=== PATIENT | female | born 1985 | race Two or more races ===

== ENCOUNTER 2020-09-07 22:36 | Emergency (ER) | payer SELFPAY ==
[~2020-09-07] VITALS: Ht 157.5 cm; Wt 85.5 kg
[2020-09-07 22:50] VITALS: BP 139/79; Ht 157.5 cm; Wt 85.5 kg
[2020-09-07 23:25] LABS: BILIRUBIN NEGATIVE (NEGATIVE); KETONE NEGATIVE (NEGATIVE); NITRITE NEGATIVE (NEGATIVE); UROBILINOGEN NORMAL mg/dL (< 2)
[2020-09-07 23:26] LABS: BACTERIA MODERATE HPF (NONE SEEN); SQUAMOUS EPITHELIAL 0-5 HPF (0-4); WHITE CELLS - URINE 0-5 HPF (0-4)
[2020-09-07 23:27] LABS: AMORPHOUS SEDIMENT >1+ LPF (NONE SEEN)
[2020-09-07 23:27] LABS: BASOPHILS 0.2 % (0-2); EOSINOPHILS 2.4 % (0-7); HEMATOCRIT 39.7 % (36.0-48.0); HEMOGLOBIN 13.9 g/dL (12-16); IMMATURE GRANULOCYTES 0.2 % (0-5); LYMPHOCYTE ABS# 3.28 10x3/uL (1.18-3.74); LYMPHOCYTES 35.8 % (15-50); MCH 29.6 pg (26.0-34.0); MCV 84.6 fL (80.0-100.0); MONOCYTES 5.1 % (2-11); NEUTROPHIL ABS# 5.14 10x3/uL (1.56-6.13); NEUTROPHILS 56.3 % (40-80); PLATELET COUNT 255 10x3/uL (130-400); RBC 4.69 10x6/uL (4.00-5.40); RDW 12.5 % (11.5-14.5); WBC 9.2 10x3/uL (4.8-10.8)
[2020-09-07 23:38] LABS: CALC OSMOLALITY 273 mosm/kg (275-300); CALCIUM 9.2 mg/dL (8.5-10.1); CARBON DIOXIDE 26.2 mmol/L (21.0-32.0); CHLORIDE - SERUM 101 mmol/L (98-107); CREATININE - SERUM 0.7 mg/dL (0.6-1.3); GLUCOSE 130 mg/dL (74-106); POTASSIUM - SERUM 3.5 mmol/L (3.5-5.1); SODIUM 136 mmol/L (136-145); UREA NITROGEN 12 mg/dL (7-18); eGFR NON AFRICAN AMERICAN > 90 mL/min (90-120)
[2020-09-08 00:05] LABS: ALBUMIN 3.9 g/dL (3.4-5.0); ALKALINE PHOSPHATASE 62 U/L (30-120); ALT (SGPT) 77 U/L (10-68); BILIRUBIN - TOTAL 0.53 mg/dL (0.2-1.3); HCG - QUANTITATIVE (MATERNAL) 9578 mIU/mL; PROTEIN - SERUM 8.2 g/dL (6.4-8.2)
== END 2020-09-08 01:26 | disposition home or self-care (01) ==
LOC: D.ER 22:36
PROVIDERS: Family Medicine
DX: O20.0 Threatened abortion (principal); Z3A.01 Less than 8 weeks gestation of pregnancy; R10.30 Lower abdominal pain, unspecified

== ENCOUNTER 2020-09-14 16:23 | Emergency (ER) | payer SELFPAY ==
[~2020-09-14] VITALS: Ht 157.5 cm; Wt 81.8 kg
[2020-09-14 16:27] VITALS: Ht 157.5 cm; Wt 81.8 kg
[2020-09-14 17:06] LABS: BASOPHILS 0.3 % (0-2); EOSINOPHILS 2.2 % (0-7); HEMATOCRIT 39.8 % (36.0-48.0); HEMOGLOBIN 13.9 g/dL (12-16); IMMATURE GRANULOCYTES 0.4 % (0-5); LYMPHOCYTE ABS# 2.52 10x3/uL (1.18-3.74); MCH 29.3 pg (26.0-34.0); MCHC 34.9 g/dL (31.0-37.0); MEAN PLATELET VOLUME 8.9 fL (7.4-10.4); NEUTROPHIL ABS# 7.47 10x3/uL (1.56-6.13); NEUTROPHILS 68.1 % (40-80); PLATELET COUNT 263 10x3/uL (130-400); RBC 4.74 10x6/uL (4.00-5.40); RDW 12.4 % (11.5-14.5)
[2020-09-14 17:12] LABS: HCG SERUM POSITIVE (NEGATIVE)
[2020-09-14 17:13] LABS: CALC OSMOLALITY 270 mosm/kg (275-300); CALCIUM 9.2 mg/dL (8.5-10.1); CHLORIDE - SERUM 101 mmol/L (98-107); CREATININE - SERUM 0.7 mg/dL (0.6-1.3); GLUCOSE 99 mg/dL (74-106); POTASSIUM - SERUM 3.5 mmol/L (3.5-5.1); SODIUM 136 mmol/L (136-145); UREA NITROGEN 9 mg/dL (7-18); eGFR NON AFRICAN AMERICAN > 90 mL/min (90-120)
[2020-09-14 17:19] LABS: BILIRUBIN NEGATIVE (NEGATIVE); KETONE MODERATE mg/dL (NEGATIVE); NITRITE NEGATIVE (NEGATIVE); UROBILINOGEN NORMAL mg/dL (< 2)
[2020-09-14 17:20] LABS: SQUAMOUS EPITHELIAL 0-5 HPF (0-4); WHITE CELLS - URINE 0-5 HPF (0-4)
[2020-09-14 17:21] LABS: BACTERIA FEW HPF (NONE SEEN)
[2020-09-14 17:43] LABS: ALKALINE PHOSPHATASE 62 U/L (30-120); ALT (SGPT) 47 U/L (10-68); BILIRUBIN - TOTAL 0.81 mg/dL (0.2-1.3); HCG - QUANTITATIVE (MATERNAL) 3377 mIU/mL; PROTEIN - SERUM 8.5 g/dL (6.4-8.2)
[2020-09-14] MEDS ORDERED: HYDROCODON-ACE1 EAC7 PO (20:20)
[2020-09-14] MEDS ORDERED: NAPROSYN500 MG PO (20:21)
[2020-09-14 20:38] VITALS: BP 116/76
== END 2020-09-14 20:39 | disposition home or self-care (01) ==
LOC: D.ER 16:23
PROVIDERS: Emergency Medicine
DX: O03.9 Complete or unspecified spontaneous abortion without complication (principal)